=== PATIENT | female | born 1985 | race African-American/Black ===

== ENCOUNTER 2024-05-01 18:05 | Emergency (ER) | payer BC ==
[2024-05-01] MEDS ORDERED: Amlodipine 5 MG TAB ONE (18:21)
[2024-05-01] MEDS ORDERED: Hydrochlorothiazide 25 MG TAB PO SCH (18:45)
== END 2024-05-01 18:50 | disposition home or self-care (01) ==
LOC: CSHERS 18:05
DX: R51.9 Headache, unspecified (principal); I10 Essential (primary) hypertension; R29.700 NIHSS score 0
CPT/HCPCS: 99283